=== PATIENT | male | born 1960 | race Caucasian/White ===

== ENCOUNTER 2020-01-30 20:40 | Emergency (ER) | payer BC, MEDICARE ==
--- NOTE | 2020-01-30 20:44 | EDM.PDOC ---
ED HPI GENERAL MEDICAL PROBLEM - General Chief Complaint: General Stated Complaint: LEG INFECTION, HEART RACING Time Seen by Provider: 01/30/20 20:42 Source of Information: Reports: Patient History Limitations: Reports: No Limitations - History of Present Illness INITIAL COMMENTS - FREE TEXT/NARRATIVE: 59-year-old male with history of stage IV colon cancer and rectal cancer, Afib, GI bleed, peripheral neuropathy, pancreatitis, bowel obstruction presents with vague constitutional symptoms today. He admits to feeling weak, hot and cold, sweats. He felt palpitations today and was concerned, currently palpitations have resolved. He also notes sharp, pressure constant midsternal chest discomfort today. He currently does not have any chest pain. He also complains of abdominal pain and chronic back pain. He takes OxyContin 10 mg 3 times daily and oxycodone 5 mg as needed for breakthrough pain. He has gone throught chemo/radiation therapy previously and is currently in remission. His prior surgery was performed by Dr. Younger at [facility] about [address] Kip Newberry is his PCP. ROS: A 10-point review of systems, other than pertinent positives and negatives as stated per HPI, is otherwise negative PHYSICAL EXAM General: AOx4, GCS = 15, No distress, anxious HEENT: dry mucous membrane Neck: supple, no meningismus, no Kernig or Brudzinski Cardiac: S1S2 RRR irregular rhythm Respiratory: CTAB, no crackles or rales, no wheezing Abdomen: Soft, LLQ TTP, no rebound or guarding, nondistended, no pulsatile mass. Back: nontender Musculoskeletal: NVI distally, no deformity Neuro: No focal deficits chronic Pain Score (Numeric/FACES): 6 - Related Data Allergies Allergy/AdvReac Type Severity Reaction Status Date / Time No Known Allergies Allergy Verified 09/16/17 15:35 Home Meds: Home Meds Aspirin 81 mg PO DAILY 07/27/16 [History] Metoprolol Succinate 100 mg PO DAILY 07/27/16 [History] oxyCODONE HCl [Oxycodone HCl] 5 mg PO Q4HR PRN 05/02/17 [History] Albuterol Sulfate [Albuterol Sulfate Hfa] 8.5 gm IH 01/30/20 [History] Fluticasone Propionate [Flovent HFA 110 MCG] 1 puff INH BID 01/30/20 [History] Furosemide 40 mg PO ASDIRECTED 01/30/20 [History] Gabapentin [Neurontin] 300 mg PO TID 01/30/20 [History] NIFEdipine [Nifedipine ER] 30 mg PO DAILY 01/30/20 [History] oxyCODONE ER [OxyCONTIN] 10 mg PO Q8HR 01/30/20 [History] Past Medical History - Past Health History Medical/Surgical History: Denies Medical/Surgical History HEENT History: Reports: Allergic Rhinitis Other HEENT History: wears glasses, has top denture Cardiovascular History: Reports: Afib, Arrhythmia, Heart Murmur, Other (See Below) Other Cardiovascular History: peripheral neuropathy, states has blood clots to both feet,Raynaud syndrome Respiratory History: Reports: None Gastrointestinal History: Reports: Other (See Below) Other Gastrointestinal History: rectal adenocarcinoma, occasional abd pain Genitourinary History: Reports: None Musculoskeletal History: Reports: Fracture, Gout Other Musculoskeletal History: fx thumb, ribs, left wrist Neurological History: Reports: Neuropathy, Peripheral Psychiatric History: Reports: Anxiety Endocrine/Metabolic History: Reports: None Hematologic History: Reports: Other (See Below) Other Hematologic History: H&P states bleeding disorder, pt states he has blood clots to both feet Oncologic (Cancer) History: Reports: Other (See Below) Other Oncologic History: rectal adenocarcinoma Dermatologic History: Reports: Other (See Below) Other Dermatologic History: dry skin - Infectious Disease History Infectious Disease History: Reports: Chicken Pox - Past Surgical History Head Surgeries/Procedures: Reports: None HEENT Surgical History: Reports: None Cardiovascular Surgical History: Reports: None Respiratory Surgical History: Reports: None GI Surgical History: Reports: Colonoscopy, Colostomy, Other (See Below) Musculoskeletal Surgical History: Reports: None Dermatological Surgical History: Reports: None Social & Family History - Family History Family Medical History: Noncontributory Oncologic: Reports: Lung - Caffeine Use Caffeine Use: Reports: None Other Caffeine Use: pt didnt answer question, unable to assess - Living Situation & Occupation Living situation: Reports: ED ROS GENERAL - Review of Systems Review Of Systems: Comprehensive ROS is negative, except as noted in HPI. ED EXAM, GENERAL - Physical Exam Exam: See Below (see dictation) EKG INTERPRETATION EKG Interpretation Comments: 102 bpm, Afib, normal QRS interval, no STEMI. EKG and rhythm strip interpreted by me at 2042 Course - Vital Signs Last Recorded V/S: Last Vital Signs Temp 97.8 F 01/31/20 00:42 Pulse 99 01/31/20 00:42 Resp 18 01/31/20 00:42 BP 133/84 01/31/20 00:42 Pulse Ox 99 01/31/20 00:42 - Orders/Labs/Meds Orders: Active Orders 24 hr Category Date Time Status EKG Documentation Completion [RC] STAT Care 01/30/20 20:58 Active Pulse Oximetry [RC] ASDIRECTED Care 01/30/20 20:56 Active CORONAVIRUS COVID-19 PCR PHL Stat Lab 01/31/20 00:43 Ordered PROCALCITONIN [REF] Stat Lab 01/30/20 21:10 Received Piperacillin/Tazobactam [Piperacil-Tazobact] 4.5 gm Med 01/31/20 00:45 Ordered Sodium Chloride 0.9% [Normal Saline] 100 ml IV ONETIME Sodium Chloride 0.9% [Saline Flush] Med 01/30/20 20:56 Active 10 ml FLUSH ASDIRECTED PRN Sodium Chloride 0.9% [Saline Flush] Med 01/30/20 20:56 Active 2.5 ml FLUSH ASDIRECTED PRN Saline Lock Insert [OM.PC] Stat Oth 01/30/20 20:56 Ordered Medication Orders Sodium Chloride (Saline Flush) 10 ml FLUSH ASDIRECTED PRN PRN Reason: Keep Vein Open Sodium Chloride (Saline Flush) 2.5 ml FLUSH ASDIRECTED PRN PRN Reason: Keep Vein Open Labs: Laboratory Tests 01/30/20 01/30/20 01/30/20 Range/Units 21:10 21:10 21:10 WBC 8.87 (4.0-11.0) K/uL RBC 4.36 L (4.50-5.90) M/uL Hgb 14.0 (13.0-17.0) g/dL Hct 41.0 (38.0-50.0) % MCV 94.0 (80.0-98.0) fL MCH 32.1 H (27.0-32.0) pg MCHC 34.1 (31.0-37.0) g/dL RDW Std Deviation 47.5 (28.0-62.0) fl RDW Coeff of Uvaldo 14 (11.0-15.0) % Plt Count 209 (150-400) K/uL MPV 10.40 (7.40-12.00) fL Neut % (Auto) 74.4 (48.0-80.0) % Lymph % (Auto) 15.6 L (16.0-40.0) % [place] % (Auto) 8.7 (0.0-15.0) % Eos % (Auto) 1.1 (0.0-7.0) % Baso % (Auto) 0.2 (0.0-1.5) % Neut # (Auto) 6.6 H (1.4-5.7) K/uL Lymph # (Auto) 1.4 (0.6-2.4) K/uL [place] # (Auto) 0.8 (0.0-0.8) K/uL Eos # (Auto) 0.1 (0.0-0.7) K/uL Baso # (Auto) 0.0 (0.0-0.1) K/uL Nucleated RBC % 0.0 /100WBC Nucleated RBCs # 0 K/uL INR APTT (18.6-31.3) SEC Lactate 1.1 (0.20-2.00) mmol/L Sodium 137 (136-148) mmol/L Potassium 3.2 L (3.5-5.1) mmol/L Chloride 99 (98-107) mmol/L Carbon Dioxide 22.3 (21.0-32.0) mmol/L BUN 13 (7.0-18.0) mg/dL Creatinine 0.9 (0.8-1.3) mg/dL Est Cr Clr Drug Dosing 99.40 mL/min Estimated GFR (MDRD) > 60.0 ml/min Glucose 102 (74-106) mg/dL Calcium 9.2 (8.5-10.1) mg/dL Phosphorus 2.8 (2.6-4.7) mg/dL Magnesium 1.8 (1.8-2.4) mg/dL Total Bilirubin 1.2 H (0.2-1.0) mg/dL AST 27 (15-37) IU/L ALT 27 (14-63) IU/L Alkaline Phosphatase 104 (46-116) U/L Creatine Kinase 158 (26-308) U/L Troponin I < 0.050 (0.000-0.056) ng/mL Total Protein 7.6 (6.4-8.2) g/dL Albumin 4.2 (3.4-5.0) g/dL Globulin 3.4 (2.6-4.0) g/dL Albumin/Globulin Ratio 1.2 (0.9-1.6) Lipase 105 (73-393) U/L Urine Color Urine Appearance Urine pH (5.0-8.0) Ur Specific [place] (1.001-1.035) Urine Protein (NEGATIVE) mg/dL Urine Glucose (UA) (NEGATIVE) mg/dL Urine Ketones (NEGATIVE) mg/dL Urine Occult Blood (NEGATIVE) Urine Nitrite (NEGATIVE) Urine Bilirubin (NEGATIVE) Urine Urobilinogen (<2.0) EU/dL Ur Leukocyte Esterase (NEGATIVE) Urine Opiates Screen (NEGATIVE) Ur Oxycodone Screen (NEGATIVE) Urine Methadone Screen (NEGATIVE) Ur Barbiturates Screen (NEGATIVE) Ur Phencyclidine Scrn (NEGATIVE) Ur Amphetamine Screen (NEGATIVE) U Methamphetamines Scrn (NEGATIVE) U Benzodiazepines Scrn (NEGATIVE) U Cocaine Metab Screen (NEGATIVE) U Marijuana (THC) Screen (NEGATIVE) Ethyl Alcohol < 3.0 mg/dL 01/30/20 01/30/20 01/30/20 Range/Units 21:17 21:50 21:52 WBC (4.0-11.0) K/uL RBC (4.50-5.90) M/uL Hgb (13.0-17.0) g/dL Hct (38.0-50.0) % MCV (80.0-98.0) fL MCH (27.0-32.0) pg MCHC (31.0-37.0) g/dL RDW Std Deviation (28.0-62.0) fl RDW Coeff of Uvaldo (11.0-15.0) % Plt Count (150-400) K/uL MPV (7.40-12.00) fL Neut % (Auto) (48.0-80.0) % Lymph % (Auto) (16.0-40.0) % [place] % (Auto) (0.0-15.0) % Eos % (Auto) (0.0-7.0) % Baso % (Auto) (0.0-1.5) % Neut # (Auto) (1.4-5.7) K/uL Lymph # (Auto) (0.6-2.4) K/uL [place] # (Auto) (0.0-0.8) K/uL Eos # (Auto) (0.0-0.7) K/uL Baso # (Auto) (0.0-0.1) K/uL Nucleated RBC % /100WBC Nucleated RBCs # K/uL INR 1.16 APTT 28.8 (18.6-31.3) SEC Lactate (0.20-2.00) mmol/L Sodium (136-148) mmol/L Potassium (3.5-5.1) mmol/L Chloride (98-107) mmol/L Carbon Dioxide (21.0-32.0) mmol/L BUN (7.0-18.0) mg/dL Creatinine (0.8-1.3) mg/dL Est Cr Clr Drug Dosing mL/min Estimated GFR (MDRD) ml/min Glucose (74-106) mg/dL Calcium (8.5-10.1) mg/dL Phosphorus (2.6-4.7) mg/dL Magnesium (1.8-2.4) mg/dL Total Bilirubin (0.2-1.0) mg/dL AST (15-37) IU/L ALT (14-63) IU/L Alkaline Phosphatase (46-116) U/L Creatine Kinase (26-308) U/L Troponin I (0.000-0.056) ng/mL Total Protein (6.4-8.2) g/dL Albumin (3.4-5.0) g/dL Globulin (2.6-4.0) g/dL Albumin/Globulin Ratio (0.9-1.6) Lipase (73-393) U/L Urine Color YELLOW Urine Appearance CLEAR Urine pH 6.0 (5.0-8.0) Ur Specific [place] 1.015 (1.001-1.035) Urine Protein NEGATIVE (NEGATIVE) mg/dL Urine Glucose (UA) NEGATIVE (NEGATIVE) mg/dL Urine Ketones 15 H (NEGATIVE) mg/dL Urine Occult Blood NEGATIVE (NEGATIVE) Urine Nitrite NEGATIVE (NEGATIVE) Urine Bilirubin NEGATIVE (NEGATIVE) Urine Urobilinogen 0.2 (<2.0) EU/dL Ur Leukocyte Esterase NEGATIVE (NEGATIVE) Urine Opiates Screen NEGATIVE (NEGATIVE) Ur Oxycodone Screen POSITIVE (NEGATIVE) Urine Methadone Screen NEGATIVE (NEGATIVE) Ur Barbiturates Screen NEGATIVE (NEGATIVE) Ur Phencyclidine Scrn NEGATIVE (NEGATIVE) Ur Amphetamine Screen NEGATIVE (NEGATIVE) U Methamphetamines Scrn NEGATIVE (NEGATIVE) U Benzodiazepines Scrn NEGATIVE (NEGATIVE) U Cocaine Metab Screen NEGATIVE (NEGATIVE) U Marijuana (THC) Screen POSITIVE (NEGATIVE) Ethyl Alcohol mg/dL Meds: Medications Generic Name Dose Route Start Last Admin Trade Name Freq PRN Reason Stop Dose Admin Sodium Chloride 10 ml 01/30/20 20:56 Saline Flush FLUSH ASDIRECTED PRN Keep Vein Open Sodium Chloride 2.5 ml 01/30/20 20:56 Saline Flush FLUSH ASDIRECTED PRN Keep Vein Open Discontinued Medications Generic Name Dose Route Start Last Admin Trade Name Freq PRN Reason Stop Dose Admin Lactated Ringer's 1,000 mls @ 999 mls/hr 01/30/20 20:56 01/30/20 21:10 Ringers, Lactated IV 01/30/20 21:56 999 mls/hr .BOLUS ONE Administration Iopamidol 100 ml 01/30/20 23:14 01/30/20 23:15 Isovue-370 (76%) IVPUSH 01/30/20 23:15 100 ml ONETIME STA Administration - Re-Assessments/Exams Free Text/Narrative Re-Assessment/Exam: 01/31/20 00:[address] Bj Bucio, he recommends transferring patient for need of higher level of care unavailable at this facility. Dr. Bucio states he might need stoma care. His previous colorectal surgery was performed at [facility]. Any emergency conditions have been stabilized to the ability of the ED prior to the transfer. Case was discussed with transfer center and transfer arranged to outside facility/higher level of care. 01/31/20 00:32 [facility] paging Dr. Darby (surgery). 01/31/20 00:[address] Darby, will consult patient. Transfer center paging Dr. Sheridan (hospitalist). 01/31/20 00:42 d/w Dr. Sheridan, will accept patient transfer by ALS. Ordered IV zosyn. Departure - Departure Time of Disposition: 00:28 Disposition: DC/Tfer to [facility] 02 Condition: Good Clinical Impression: Hypokalemia, Atrial fibrillation, Rectal cancer, Leak of anastomosis between gastrointestinal structures, Free intraperitoneal air - Discharge Information *PRESCRIPTION DRUG MONITORING PROGRAM REVIEWED*: Not Applicable *COPY OF PRESCRIPTION DRUG MONITORING REPORT IN PATIENT MARLEN: Not Applicable Referrals: Kip Newberry MD [Primary Care Provider] - Forms: ED Department Discharge Critical Care Note - Critical Care Note Total Time (mins): 40 Comments: Critical Care: The high probability of sudden, clinically significant deterioration in the patient's condition required the highest level of my preparedness to intervene urgently. The services I provided to this patient were to treat and/or prevent clinically significant deterioration. Services included the following: chart data review, reviewing nursing notes and/or old charts, documentation time, construction safety consultant collaboration regarding findings and treatment options, medication orders and management, direct patient care, vital sign assessments and ordering, interpreting and reviewing diagnostic studies/lab tests. Aggregate critical care time includes only time during which I was engaged in work directly related to the patient's care, as described above, whether at the bedside or elsewhere in the Emergency Department. It did not include time spent performing other reported procedures or the services of residents, students, nurses or physician assistants. Frequent interventions and/or frequent repeat evaluations were required as well as counseling and coordination of care regarding prognosis, treatments, and discussions with patient, staff and consultants. Critical Care (excluding other procedures): 40 minutes Sepsis Event Note (ED) - Focused Exam Vital Signs: Vital Signs Temp Pulse Resp BP Pulse Ox 01/31/20 00:42 97.8 F 99 18 133/84 99 01/31/20 00:19 88 18 129/101 H 97 01/30/20 23:14 78 18 126/89 98 01/30/20 22:16 84 131/106 H 97 01/30/20 22:04 94 140/105 H 97 01/30/20 21:49 82 124/98 H 100 01/30/20 21:34 132/97 H 100 01/30/20 21:19 90 122/91 H 100 01/30/20 21:17 99 126/94 H 100 01/30/20 20:51 96.3 F L 91 18 133/105 H 100 - My Orders Last 24 Hours: My Active Orders 01/30/20 20:56 Pulse Oximetry [RC] ASDIRECTED Sodium Chloride 0.9% [Saline Flush] 10 ml FLUSH ASDIRECTED PRN Sodium Chloride 0.9% [Saline Flush] 2.5 ml FLUSH ASDIRECTED PRN Saline Lock Insert [OM.PC] Stat 01/30/20 20:58 EKG Documentation Completion [RC] STAT 01/30/20 21:10 PROCALCITONIN [REF] Stat 01/31/20 00:43 CORONAVIRUS COVID-19 PCR PHL Stat 01/31/20 00:45 Piperacillin/Tazobactam [Piperacil-Tazobact] 4.5 gm Sodium Chloride 0.9% [Normal Saline] 100 ml IV ONETIME - Assessment/Plan Last 24 Hours: My Active Orders 01/30/20 20:56 Pulse Oximetry [RC] ASDIRECTED Sodium Chloride 0.9% [Saline Flush] 10 ml FLUSH ASDIRECTED PRN Sodium Chloride 0.9% [Saline Flush] 2.5 ml FLUSH ASDIRECTED PRN Saline Lock Insert [OM.PC] Stat 01/30/20 20:58 EKG Documentation Completion [RC] STAT 01/30/20 21:10 PROCALCITONIN [REF] Stat 01/31/20 00:43 CORONAVIRUS COVID-19 PCR PHL Stat 01/31/20 00:45 Piperacillin/Tazobactam [Piperacil-Tazobact] 4.5 gm Sodium Chloride 0.9% [Normal Saline] 100 ml IV ONETIME
[2020-01-30] MEDS ORDERED: Lactated Ringers 1,000 ML IV ONE (20:56)
[2020-01-30] MEDS ORDERED: Sodium Chloride 0.9% 10 ML Syringe FLUSH PRN (20:56)
[2020-01-30] MEDS ORDERED: Sodium Chloride 0.9% 2.5 ML Syringe FLUSH PRN (20:56)
[2020-01-30 21:49] LABS: BLOOD UREA NITROGEN,BUN 13 mg/dL (7.0-18.0); CARBON DIOXIDE,CO2 22.3 mmol/L (21.0-32.0); CHLORIDE,CL 99 mmol/L (98-107); GLUCOSE RANDOM 102 mg/dL (74-106); LIPASE 105 U/L (73-393); POTASSIUM,K 3.2 mmol/L (3.5-5.1); SODIUM,NA 137 mmol/L (136-148)
--- NOTE | 2020-01-30 21:57 | CR ---
Chest: Portable view of the chest was obtained. Comparison: Previous chest x-ray of 11/21/19. Heart size is within normal limits for portable technique. Tortuous thoracic aorta is seen. Evidence of previous vertebroplasty. Prior spine surgery is noted. Old healed right clavicle fracture is seen. Lungs are clear with no acute parenchymal change. Left-sided infusion catheter is seen. Impression: 1. Chronic bone findings as noted above. Infusion catheter. 2. Nothing acute is seen. Diagnostic code #2 Study was dictated in MDT
[2020-01-30] MEDS ORDERED: Iopamidol 755 Mg/ML 100 ML Bottle IVPUSH STA (23:14)
--- NOTE | 2020-01-31 00:08 | CT ---
INDICATION: Left lower quadrant pain, history of stage IV rectal cancer TECHNIQUE: CT abdomen and pelvis acquired with 100 cc Isovue 370 IV contrast. COMPARISON: September 07, 2019 FINDINGS: Lower chest: Cardiomegaly. Coronary artery calcifications. Liver: 1.6 cm hypodense lesion in the right hepatic lobe image 63 series 201 is new compared to the prior exam. There is somewhat in homogeneous enhancement of the liver. Spleen: Unremarkable. Pancreas: Unremarkable. Gallbladder and bile ducts: Unremarkable. Adrenal glands: Unremarkable. Kidneys: There is some scarring on both kidneys. GI tract: Anastomotic suture within the small bowel in the right abdomen and also apparently in the distal sigmoid colon. There is abnormal soft tissue density and air surrounding the distal sigmoid colon and within the presacral space. No rim enhancing fluid collection identified. Vascular structures: Unremarkable. Lymph nodes: Unremarkable. Miscellaneous: Small fat containing umbilical hernia. No free air or significant free fluid. Pelvic Organs: Enlarged prostate gland. Bones: Status post ORIF T11-L3. Chronic L1 fracture. IMPRESSION: Findings concerning for breakdown of anastomosis versus perforation of wall of the distal sigmoid colon with abnormal soft tissue and air surrounding this portion of the colon and within the presacral space. No rim enhancing fluid collection identified. Cardiomegaly with coronary artery disease. In homogeneous enhancement of the liver may be artifactual. There is a 1.6 cm hypodense lesion in the right hepatic lobe that is new compared to September 07, 2019. Consider MR liver for further characterization. Enlarged prostate gland. Findings discussed with Dr. Amato at 12:05 a.m. on January 31, 2020. Please note that all CT scans at this facility use dose modulation, iterative reconstruction, and/or weight-based dosing when appropriate to reduce radiation dose to as low as reasonably achievable. Dictated by Rina Ching MD @ Jan 31 2020 12:01AM (Electronically Signed)
[2020-01-31] MEDS ORDERED: Piperacillin/Tazobactam 4.5 GM in Sodium Chloride 0.9% 100 ML IV ONE (00:45)
[2020-01-31] MEDS ORDERED: LORazepam 2 MG/ML SDV IVPUSH ONE (01:56)
[2020-01-31 02:17] VITALS: BP 125/93; PULSE 98
== END 2020-01-31 02:15 ==
LOC: MW.ED 20:40
DX: I48.91 Unspecified atrial fibrillation (principal); E87.6 Hypokalemia; C20 Malignant neoplasm of rectum; K91.89 Other postprocedural complications and disorders of digestive system; G62.9 Polyneuropathy, unspecified; Z79.82 Long term (current) use of aspirin; Z79.899 Other long term (current) drug therapy
CPT/HCPCS: 36415; 71045; 74177; 80053; 80305; 80307; 81003; 82550; 83605; 83690; 83735; 84100; 84145; 84484; 85025; 85610; 85730; 87635; 93005; 96361; 96365; 96375; 99285; J2060; J2543; J7050; J7120; Q9967; U0002

== ENCOUNTER 2020-06-27 15:33 | Emergency (ER) | payer MEDICARE ==
--- NOTE | 2020-06-27 15:44 | EDM.PDOC ---
ED HPI GENERAL MEDICAL PROBLEM - General Chief Complaint: Skin Complaint Stated Complaint: PERFORATED INTESTINE SURGERY Time Seen by Provider: 06/27/20 15:37 Source of Information: Reports: Patient History Limitations: Reports: No Limitations - History of Present Illness INITIAL COMMENTS - FREE TEXT/NARRATIVE: 60-year-old male history of rectal cancer presents for CARMEN drain malfunction. Patient notes that the drain was placed approximately 6 weeks ago at [facility], he is unsure of the physician's name managing his care. He notes that he had an intestinal perforation and that it was managed nonsurgically through interventional radiology drain placement. He notes minimal output from the drain for the past couple of weeks. He was stripping the drain today when he accidentally pulled it out. He denies any pain, fevers, redness. He is supposed to follow-up in [facility] in 4 days but notes that he was planning on missing this appointment but keeping his next follow-up appointment in 2 weeks. Generalized Pain Score (Numeric/FACES): 7 - Related Data Allergies Allergy/AdvReac Type Severity Reaction Status Date / Time No Known Allergies Allergy Verified 06/27/20 15:44 Home Meds: Home Meds Aspirin 81 mg PO DAILY 07/27/16 [History] Metoprolol Succinate 100 mg PO DAILY 07/27/16 [History] oxyCODONE HCl [Oxycodone HCl] 5 mg PO Q4HR PRN 05/02/17 [History] Albuterol Sulfate [Albuterol Sulfate Hfa] 8.5 gm IH 01/30/20 [History] Fluticasone Propionate [Flovent HFA 110 MCG] 1 puff INH BID 01/30/20 [History] Furosemide 40 mg PO ASDIRECTED 01/30/20 [History] Gabapentin [Neurontin] 300 mg PO TID 01/30/20 [History] NIFEdipine [Nifedipine ER] 30 mg PO DAILY 01/30/20 [History] oxyCODONE ER [OxyCONTIN] 10 mg PO Q8HR 01/30/20 [History] Past Medical History - Past Health History Medical/Surgical History: Denies Medical/Surgical History HEENT History: Reports: Allergic Rhinitis Other HEENT History: wears glasses, has top denture Cardiovascular History: Reports: Afib, Arrhythmia, Heart Murmur, Other (See Below) Other Cardiovascular History: peripheral neuropathy, states has blood clots to both feet,Raynaud syndrome Respiratory History: Reports: None Other Respiratory History: CPAP for sleep, hx lung cancer, pt reports lobectomy Gastrointestinal History: Reports: Other (See Below) Other Gastrointestinal History: rectal adenocarcinoma, occasional abd pain Genitourinary History: Reports: None Musculoskeletal History: Reports: Fracture, Gout Other Musculoskeletal History: fx thumb, ribs, left wrist Neurological History: Reports: Neuropathy, Peripheral Psychiatric History: Reports: Anxiety Endocrine/Metabolic History: Reports: None Hematologic History: Reports: Other (See Below) Other Hematologic History: H&P states bleeding disorder, pt states he has blood clots to both feet Oncologic (Cancer) History: Reports: Other (See Below) Other Oncologic History: rectal adenocarcinoma Dermatologic History: Reports: Other (See Below) Other Dermatologic History: dry skin - Infectious Disease History Infectious Disease History: Reports: Chicken Pox - Past Surgical History Other GI Surgeries/Procedures: pt reports multiple surgeries Social & Family History - Family History Family Medical History: No Pertinent Family History Oncologic: Reports: Lung - Caffeine Use Caffeine Use: Reports: None Other Caffeine Use: pt didnt answer question, unable to assess - Living Situation & Occupation Living situation: Reports: ED ROS GENERAL - Review of Systems Review Of Systems: Comprehensive ROS is negative, except as noted in HPI. ED EXAM, SKIN/RASH Exam: See Below Exam Limited By: No Limitations General Appearance: Alert, WD/WN, No Apparent Distress Throat/Mouth: Normal Inspection, Normal Voice, No Airway Compromise Head: Atraumatic, Normocephalic Neck: Normal Inspection Respiratory/Chest: No Respiratory Distress, No Accessory Muscle Use Cardiovascular: Normal Peripheral Pulses GI/Abdominal: Soft, Non-Tender Extremities: Normal Inspection Neurological: Alert, Normal Gait Psychiatric: Normal Affect, Normal Mood Skin: Warm, Dry, Intact, Other (area right gluteus with opening from CARMEN drain, no associated erythema or drainage, no fluctuance) Course - Vital Signs Last Recorded V/S: Last Vital Signs Temp 96.3 F L 06/27/20 16:37 Pulse 99 06/27/20 16:37 Resp 16 06/27/20 16:37 BP 123/79 06/27/20 16:37 Pulse Ox 99 06/27/20 16:37 - Re-Assessments/Exams Free Text/Narrative Re-Assessment/Exam: 12/10/20 15:59 Will contact [facility] and try to reach out to patient's managing physician. 06/27/20 17:[address] Dm Michel who manages patient's CARMEN drain. He states he was debating removing it anyway and maybe now is a good time. Will d/c patient with return precautions and to f/u with Dr. Bryant Departure - Departure Time of Disposition: 17:03 Disposition: Home, Self-Care 01 Condition: Good Clinical Impression: Rectal cancer CARMEN drain, broken Qualifiers: Encounter type: initial encounter Qualified Code(s): T85.698A - Other mechanical complication of other specified internal prosthetic devices, implants and grafts, initial encounter - Discharge Information Instructions: Colorectal Cancer Referrals: Kip Newberry MD [Primary Care Provider] - Forms: ED Department Discharge Additional Instructions: I spoke with your physician at [facility]. He does not recommend having the drain replaced at this time. He would like to follow-up with you. If you develop fever, pain in the area, or any new or concerning symptoms you are encouraged to come back to the emergency department for further work-up. He does not recommend getting a CT scan at this time. Please keep your follow-up appointment. The following information is given to patients seen in the emergency department who are being discharged to home. This information is to outline your options for follow-up care. We provide all patients seen in our emergency department with a follow-up referral. The need for follow-up, as well as the timing and circumstances, are variable depending upon the specifics of your emergency department visit. If you don't have a primary care physician on staff, we will provide you with a referral. We always advise you to contact your personal physician following an emergency department visit to inform them of the circumstance of the visit and for follow-up with them and/or the need for any referrals to a consulting specialist. The emergency department will also refer you to a specialist when appropriate. This referral assures that you have the opportunity for follow-up care with a specialist. All of these measure are taken in an effort to provide you with optimal care, which includes your follow-up. Under all circumstances we always encourage you to contact your private physician who remains a resource for coordinating your care. When calling for follow-up care, please make the office aware that this follow-up is from your recent emergency room visit. If for any reason you are refused follow-up, please contact the [facility] Emergency Department at and asked to speak to the emergency department charge nurse. Please follow up with your primary care physician. If you do not have a primary care physician, see below: [facility] [address] [place] [id number] [facility] [address] [place] [address] Sepsis Event Note (ED) - Focused Exam Vital Signs: Vital Signs Temp Pulse Resp BP Pulse Ox 06/27/20 16:37 96.3 F L 99 16 123/79 99 06/27/20 15:44 96.8 F L 110 H 18 108/81 97
[2020-06-27 17:29] VITALS: BP 115/82; PULSE 105
== END 2020-06-27 17:25 | disposition home or self-care (01) ==
LOC: MW.ED 15:33
DX: T85.698A Other mechanical complication of other specified internal prosthetic devices, implants and grafts, initial encounter (principal); C20 Malignant neoplasm of rectum; I48.91 Unspecified atrial fibrillation; M10.9 Gout, unspecified; G62.9 Polyneuropathy, unspecified; Z79.82 Long term (current) use of aspirin; Z79.899 Other long term (current) drug therapy
CPT/HCPCS: 99283

== ENCOUNTER 2021-01-06 07:08 | Day surgery (SDC) | payer MEDICARE, BC ==
[~2021-01-06 07:08] MED LIST: Albuterol 0.083% 2.5 MG/3 ML Neb Soln NEB PRN; Glycopyrrolate 0.2 MG/ML SDV ONE; Ketorolac 30 MG/ML SDV ONE; Lactated Ringers 1,000 ML IV SCH; Lidocaine 2% 5 ML SDV ONE; Metoclopramide 10 MG/2 ML SDV IVPUSH PRN; Midazolam 1 MG/ML 2 ML SDV ONE; Morphine 10 MG/ML Syringe IVPUSH PRN; Naloxone 0.4 MG/ML Syringe IVPUSH PRN; Ondansetron 4 MG/2 ML SDV IVPUSH PRN; Propofol 200 MG/20 ML SDV ONE; ceFAZolin 2 GM in Premix Bag 1 BAG IV SCH; fentaNYL 100 MCG/2 ML SDV IVPUSH PRN
[2021-01-06] MEDS ORDERED: Bupivacaine 0.5% 30 ML SDV ONE (07:24)
[2021-01-06] MEDS ORDERED: ceFAZolin 1 GM Vial ONE ×2 (07:24→08:59)
--- NOTE | 2021-01-06 08:09 | PCM.PREANE ---
Preanesthetic Assessment - Anesthesia/Transfusion/Family Hx Anesthesia History: Prior Anesthesia Without Reaction Family History of Anesthesia Reaction: No Transfusion History: Prior Transfusion Without Reaction - Review of Systems General: Weakness, Fatigue, Appetite Pulmonary: Shortness of Breath Cardiovascular: Dyspnea on Exertion Gastrointestinal: Decreased Appetite Neurological: No Symptoms Other: Reports: Easy Bleeding, Liver Problems, Sinus Problem, Anxiety - Physical Assessment NPO Status Date: 01/06/21 NPO Status Time: 00:00 Vital Signs: Last Vital Signs Temp 96.8 F L 01/06/21 07:29 Pulse 74 01/06/21 07:29 Resp 16 01/06/21 07:29 BP 93/69 01/06/21 07:29 Pulse Ox 98 01/06/21 07:29 Height: 6 ft Weight: 180 lb Mental Status: Alert & Oriented x3 Airway Class: Mallampati = 2 Dentition: Reports: Dentures Thyro-Mental Finger Breadths: 4 Mouth Opening Finger Breadths: 4 ROM/Head Extension: Full Lungs: Clear to Auscultation, Normal Respiratory Effort Cardiovascular: Regular Rate, Regular Rhythm - Allergies Allergies/Adverse Reactions: Allergies Allergy/AdvReac Type Severity Reaction Status Date / Time No Known Allergies Allergy Verified 01/06/21 07:53 - Blood Blood Available: No - Anesthesia Plan Beta Amor: Metoprolol Med Last Dose Date: 01/06/21 Med Last Dose Time: 05:00 - Acknowledgements Anesthesia Type Planned: General Anesthesia Pt an Appropriate Candidate for the Planned Anesthesia: Yes Alternatives and Risks of Anesthesia Discussed w Pt/Guardian: Yes Pt/Guardian Understands and Agrees with Anesthesia Plan: Yes PreAnesthesia Questionnaire - Past Health History Medical/Surgical History: Denies Medical/Surgical History HEENT History: Reports: Allergic Rhinitis Other HEENT History: wears glasses, has top denture Cardiovascular History: Reports: Afib, Arrhythmia, Other (See Below) Other Cardiovascular History: peripheral neuropathy, states has blood clots to both feet, raynauds syndrome Respiratory History: Reports: Other (See Below) Other Respiratory History: hx lung cancer stage I, uses neb tx's and inhalers as needed Gastrointestinal History: Reports: Other (See Below) Other Gastrointestinal History: rectal adenocarcinoma, occasional heartburn Genitourinary History: Reports: Other (See Below) Other Genitourinary History: frequent urination Musculoskeletal History: Reports: Back Pain, Chronic, Fracture, Gout Other Musculoskeletal History: fx thumb, ribs, left wrist, collarbone, Neurological History: Reports: Neuropathy, Peripheral Psychiatric History: Reports: Anxiety Endocrine/Metabolic History: Reports: None Hematologic History: Reports: Other (See Below) Other Hematologic History: H&P states bleeding disorder, pt states he has blood clots to both feet following a fall from tree stand Immunologic History: Reports: None Oncologic (Cancer) History: Reports: Colon, Lung Dermatologic History: Reports: None - Infectious Disease History Infectious Disease History: Reports: Chicken Pox - Past Surgical History Head Surgeries/Procedures: Reports: None HEENT Surgical History: Reports: None Cardiovascular Surgical History: Reports: None Respiratory Surgical History: Reports: Lung Resection GI Surgical History: Reports: Colon, Colonoscopy, Colostomy, Other (See Below) Other GI Surgeries/Procedures: pt reports multiple surgeries, low anterior resection with colostomy, colostomy reversal Male Surgical History: Reports: Other (See Below) Other Male Surgeries/Procedures: partial hepatetectomy at 6 months old (benign) Endocrine Surgical History: Reports: None Neurological Surgical History: Reports: Lumbar Spine Other Neurological Surgeries/Procedures: hx back surgery Musculoskeletal Surgical History: Reports: None Oncologic Surgical History: Reports: Lobectomy, Other (See Below) Other Oncologic Surgeries/Procedures: hx low anterior colon resection, lung lobectomy Dermatological Surgical History: Reports: None - SUBSTANCE USE Tobacco Use Status *Q: Light Tobacco User Tobacco Use Within Last Twelve Months: Cigars Recreational Drug Type: Reports: Marijuana/Hashish - HOME MEDS Home Medications: Home Meds Aspirin 82 mg PO DAILY 07/27/16 [History] Metoprolol Succinate 100 mg PO DAILY 07/27/16 [History] oxyCODONE HCl [Oxycodone HCl] 5 mg PO Q4HR PRN 05/02/17 [History] Fluticasone Propionate [Flovent HFA 110 MCG] 1 puff INH ASDIRECTED PRN 01/30/20 [History] Gabapentin [Neurontin] 600 mg PO TID 01/30/20 [History] NIFEdipine [Nifedipine ER] 30 mg PO DAILY 01/30/20 [History] Albuterol Sulfate 1 inhalation NEB ASDIRECTED PRN 01/01/21 [History] Albuterol Sulfate [Proair Hfa] 1 - 2 puff INH ASDIRECTED PRN 01/01/21 [History] Ascorbic Acid [Vitamin C] 1 tab PO DAILY 01/01/21 [History] Cholecalciferol (Vitamin D3) [Vitamin D3] 1 tab PO DAILY 01/01/21 [History] Multivitamin 1 tab PO DAILY 01/01/21 [History] Naproxen Sodium [Aleve] 1 tab PO ASDIRECTED PRN 01/01/21 [History] - CURRENT (IN HOUSE) MEDS Current Meds: Current Medications Albuterol (Albuterol 0.083% 2.5 Mg/3 Ml Neb Soln) 2.5 mg NEB ONETIME PRN PRN Reason: Wheezing Droperidol (Droperidol 5 Mg/2 Ml Sdv) 0.625 mg IVPUSH ONETIME PRN PRN Reason: Nausea/Vomiting Fentanyl (Fentanyl 100 Mcg/2 Ml Sdv) 50 mcg IVPUSH Q5M PRN PRN Reason: Pain (mild 1-3) Hydromorphone HCl (Hydromorphone 2 Mg/Ml Syringe) 0.5 mg IVPUSH Q10M PRN PRN Reason: Pain (moderate 4-6) Cefazolin Sodium/Dextrose 2 gm (/ Premix) 50 mls @ 100 mls/hr IV ONETIME NELI Lactated Ringer's (Ringers, Lactated) 1,000 mls @ 125 mls/hr IV ASDIRECTED REPLACED BY [facility] Last Admin: 01/06/21 07:34 Dose: 125 mls/hr Documented by: Metoclopramide HCl (Metoclopramide 10 Mg/2 Ml Sdv) 10 mg IVPUSH ONETIME PRN PRN Reason: Nausea/Vomiting Morphine Sulfate (Morphine 10 Mg/Ml Syringe) 2 mg IVPUSH Q10M PRN PRN Reason: Pain (severe 7-10) Naloxone HCl (Naloxone 0.4 Mg/Ml Syringe) 0.1 mg IVPUSH ASDIRECTED PRN PRN Reason: Respiratory Depression Ondansetron HCl (Ondansetron 4 Mg/2 Ml Sdv) 4 mg IVPUSH ONETIME PRN PRN Reason: Nausea/Vomiting Discontinued Medications Bupivacaine HCl (Bupivacaine 0.5% 30 Ml Sdv) Confirm Administered Dose 30 ml .ROUTE .STK-MED ONE Stop: 01/06/21 07:25 Cefazolin Sodium (Cefazolin 1 Gm Vial) Confirm Administered Dose 1 gm .ROUTE .STK-MED ONE Stop: 01/06/21 07:25 Glycopyrrolate (Glycopyrrolate 0.2 Mg/Ml Sdv) Confirm Administered Dose 0.2 mg .ROUTE .STK-MED ONE Stop: 01/06/21 07:05 Ketorolac Tromethamine (Ketorolac 30 Mg/Ml Sdv) Confirm Administered Dose 30 mg .ROUTE .STK-MED ONE Stop: 01/06/21 07:05 Lidocaine (Lidocaine 2% 5 Ml Sdv) Confirm Administered Dose 5 ml .ROUTE .STK-MED ONE Stop: 01/06/21 07:05 Midazolam HCl (Midazolam 1 Mg/Ml 2 Ml Sdv) Confirm Administered Dose 2 mg .ROUTE .STK-MED ONE Stop: 01/06/21 07:04 Propofol (Propofol 200 Mg/20 Ml Sdv) Confirm Administered Dose 200 mg .ROUTE .STK-MED ONE Stop: 01/06/21 07:04
[2021-01-06] MEDS ORDERED: Sodium Chloride 0.9% 20 ML ONE (08:59)
[2021-01-06] MEDS ORDERED: Morphine 10 MG/ML Syringe IVPUSH PRN (10:55)
[2021-01-06] MEDS ORDERED: Ondansetron 4 MG/2 ML SDV IVPUSH PRN (10:55)
--- NOTE | 2021-01-06 10:59 | PCM.OPNOTE ---
- General Post-Op/Procedure Note Date of Surgery/Procedure: 01/06/21 Operative Procedure(s): Repair right inguinal hernia with medium Bard PerFix plug and patch. Pre Op Diagnosis: Reducible right inguinal hernia Post-Op Diagnosis: Same Anesthesia Technique: General LMA (ASA III) Primary Surgeon: Bj Bucio Nail Maker: Mercedes Newberry Fluid Replacement, Intraop: 1,000 EBL in mLs: 5 Condition: Good Free Text/Narrative:: DICTATION 624097 CPT CODE 79843
[2021-01-06] MEDS ORDERED: Lactated Ringers 1,000 ML IV SCH (11:00)
[2021-01-06] MEDS: HYDROmorphone 2 MG/ML Syringe IVPUSH PRN ×2 (11:09→11:26)
--- NOTE | 2021-01-06 11:49 | PCM.POSTAN ---
POST ANESTHESIA ASSESSMENT - MENTAL STATUS Mental Status: Alert, Oriented - VITAL SIGNS Vital Signs: Last Vital Signs Temp 97.0 F 01/06/21 11:20 Pulse 68 01/06/21 11:35 Resp 14 01/06/21 11:35 BP 96/64 01/06/21 11:35 Pulse Ox 96 01/06/21 11:35 - RESPIRATORY Respiratory Status: Respiratory Rate WNL, Airway Patent, O2 Saturation Stable - CARDIOVASCULAR CV Status: Pulse Rate WNL, Blood Pressure Stable - GASTROINTESTINAL GI Status: No Symptoms - POST OP HYDRATION Hydration Status: Adequate & Stable
--- NOTE | 2021-01-06 11:50 | PCM48HPAN ---
Post Anesthesia Note - EVALUATION WITHIN 48HRS OF ANESTHETIC Vital Signs in Normal Range: Yes Patient Participated in Evaluation: Yes Respiratory Function Stable: Yes Airway Patent: Yes Cardiovascular Function Stable: Yes Hydration Status Stable: Yes Pain Control Satisfactory: Yes Nausea and Vomiting Control Satisfactory: Yes Mental Status Recovered: Yes Vital Signs: Last Vital Signs Temp 97.0 F 01/06/21 11:20 Pulse 68 01/06/21 11:35 Resp 14 01/06/21 11:35 BP 96/64 01/06/21 11:35 Pulse Ox 96 01/06/21 11:35
[2021-01-06 12:25] VITALS: BP 97/68; PULSE 72
--- NOTE | 2021-01-06 15:52 | OR ---
SURGEON: Bj Bucio M.D. DATE OF PROCEDURE: 01/06/2021 OPERATION PERFORMED: Repair of right inguinal hernia with medium Bard PerFix plug and patch. PRIMARY SURGEON: Bj Bucio M.D. TOOL LAPPER HAND: KATI Torres student. ANESTHESIA: General LMA. ASA CLASSIFICATION: III. PREOPERATIVE DIAGNOSIS: Reducible right inguinal hernia. POSTOPERATIVE DIAGNOSIS: Reducible right inguinal hernia. ESTIMATED BLOOD LOSS: 5 mL. INTRAOPERATIVE FLUID REPLACEMENT: 1000 mL of crystalloid. DESCRIPTION OF PROCEDURE: The patient was taken to the operating room and placed on the operating table in the supine position. The surgical site had been marked with the patient's help prior to the patient entering the operating room. Time-out was called for appropriate identification of the patient and procedure. Following satisfactory attainment of general anesthesia with placement of an LMA, the abdomen was prepped with DuraPrep solution and sterile drapes were applied. Skin incision was marked out in the right inguinal crease, then infiltrated with 10 mL of 0.5% plain Marcaine solution. Skin incision was made and deepened through the subcutaneous tissue obtaining hemostasis with the use of electrocautery. The external oblique was opened in the direction of its fibers and retracted. The hernia sac and cord were mobilized, and the hernia sac from the cord. The cord was then encircled with a Sukhwinder drain. The patient did have a small lipoma of the cord that was removed. Once the hernia sac was completely mobilized, this was easily able to be reduced. A medium Bard PerFix plug and patch were brought to the operating table and soaked in 1% Ancef solution. The plug was placed into the internal ring and secured with 0 Ethibond sutures. The patch was then placed overlying this area and secured with multiple interrupted stitches beginning medially and inferiorly to Franklin's ligament, transitioning to the inguinal ligament, and superiorly to the transversalis fascia. The wings of the patch were brought around the cord and secured with 0 Ethibond suture. All sutures except the lateral suture were tied. The patient was given a Valsalva maneuver to 30 cm of water, and the repair was satisfactory. The lateral suture was then tied with care taken not to impinge the cord. The wound was then inspected for hemostasis, and small bleeding sites were electrocoagulated. The wound was irrigated with 1% Ancef solution. The cord was returned to its proper anatomic position, and the external oblique fascia was closed with 3-0 Vicryl. Shantell's fascia was reapproximated with 3-0 Vicryl and the skin edges were reapproximated with subcuticular 4-0 Monocryl reinforced with half-inch Steri-Strips. Sterile Tegaderm was placed as a dressing. Sponge, needle, and instrument counts were all correct. Following emergence from anesthesia and extubation, the patient was taken to recovery room in stable condition. DOROTEO RICHARDSON /[id number] JOCY
== END 2021-01-06 12:24 | disposition home or self-care (01) ==
LOC: MW.SDS 07:08
PROVIDERS: ATTEND Surgery
DX: K40.90 Unilateral inguinal hernia, without obstruction or gangrene, not specified as recurrent (principal); D17.6 Benign lipomatous neoplasm of spermatic cord; M10.9 Gout, unspecified; I48.91 Unspecified atrial fibrillation; D68.9 Coagulation defect, unspecified; F17.210 Nicotine dependence, cigarettes, uncomplicated; Z86.69 Personal history of other diseases of the nervous system and sense organs; Z98.890 Other specified postprocedural states; Z85.038 Personal history of other malignant neoplasm of large intestine; Z85.118 Personal history of other malignant neoplasm of bronchus and lung; Z79.82 Long term (current) use of aspirin; Z79.899 Other long term (current) drug therapy
CPT/HCPCS: 49505; C1781; J0690; J1170; J1885; J2250; J2704; J3490; J7120; 00830

== ENCOUNTER 2021-01-08 19:50 | Emergency (ER) | payer MEDICARE, BC ==
[2021-01-08] MEDS ORDERED: Sodium Chloride 0.9% 2.5 ML Syringe FLUSH PRN (20:27)
[2021-01-08] MEDS ORDERED: Sodium Chloride 0.9% 10 ML Syringe FLUSH PRN (20:27)
[2021-01-08] MEDS ORDERED: fentaNYL 50 MCG/ML SDV IVPUSH ONE (20:27)
[2021-01-08] MEDS ORDERED: Ondansetron 4 MG/2 ML SDV IVPUSH ONE (20:27)
--- NOTE | 2021-01-08 20:31 | EDM.PDOC ---
ED HPI GENERAL MEDICAL PROBLEM - General Chief Complaint: General Stated Complaint: HAD HERNIA SURGERY Time Seen by Provider: 01/08/21 19:55 - History of Present Illness INITIAL COMMENTS - FREE TEXT/NARRATIVE: History of present illness: [] The patient is here for abdominal pain, anorexia, nausea, and decreased bowel movements. Patient has chronic recurring bowel obstructions and abdominal pain and adhesions from multiple surgeries. He is a survival of lung cancer in a less than 5-year survivor of colon cancer with a negative colonoscopy on last check. He had a inguinal hernia that was symptomatic with pain and had a re paired 2 days ago here. The patient admittedly is not only not having bowel movements and not eating well but scared to be alone at home and worried that he is going to need another surgery. He adamantly refuses an NG tube. The patient called the surgeon of record and was told that the pain was probably not unexpected. The patient has passed some gas today. Review of systems: As per history of present illness and below otherwise all systems reviewed and negative. Past medical history: As per history of present illness and as reviewed below otherwise noncontributory. Surgical history: As per history of present illness and as reviewed below otherwise noncontributory. Social history: No reported history of drug or alcohol abuse. Family history: As per history of present illness and as reviewed below otherwise noncontributory. Physical exam: Constitutional - well developed, well-nourished and in no acute distress HEENT - normocephalic, no evidence of trauma - external nose and mouth normal - no mass in neck and no JVD - mucosae moist EYES - full EOM, PERRL, no icterus - no evidence of inflammation, injection, or drainage Respiratory - no respiratory distress, equal bilateral expansion, lungs clear to auscultation and no abnormal lung sounds Cardiovascular - Regular Rhythm with S1 and S2 appreciated and no murmur, gallop or rub. GI -incision in the right lower quadrant without any evidence of dehiscence or inflammation. There is some tenderness in the abdomen but it is much in the hypogastrium superior to this area as it is in the area of the incision itself. Abdomen soft without distension or organomegaly - normal bowel sounds - no guard or rebound -no recurrence of hernia with Valsalva normal external genitalia except for ecchymosis of the skin. Musculoskeletal no gross deformity of long bones or joints - no tenderness, swelling or edema Neurologic - Alert and oriented times four - CN II-XII grossly intact - motor sensory and coordination symmetrically normal Psychiatric - appropriate mood and affect with normal thought content Hematologic - No petechiae or purpura - mucosa appropriate color and sclera not pale - normal nail bed color and refill Integument - no rash or evidence of trauma - normal turgor Diagnostics: [] Therapeutics: [] Impression: [] Plan: [] Definitive disposition and diagnosis as appropriate pending reevaluation and review of above. Right Groin Pain Score (Numeric/FACES): 5 - Related Data Allergies Allergy/AdvReac Type Severity Reaction Status Date / Time No Known Allergies Allergy Verified 01/08/21 19:56 Home Meds: Home Meds Aspirin 82 mg PO DAILY 07/27/16 [History] Metoprolol Succinate 100 mg PO DAILY 07/27/16 [History] oxyCODONE HCl [Oxycodone HCl] 5 mg PO Q4HR PRN 05/02/17 [History] Fluticasone Propionate [Flovent HFA 110 MCG] 1 puff INH ASDIRECTED PRN 01/30/20 [History] Gabapentin [Neurontin] 600 mg PO TID 01/30/20 [History] NIFEdipine [Nifedipine ER] 30 mg PO DAILY 01/30/20 [History] Albuterol Sulfate 1 inhalation NEB ASDIRECTED PRN 01/01/21 [History] Albuterol Sulfate [Proair Hfa] 1 - 2 puff INH ASDIRECTED PRN 01/01/21 [History] Ascorbic Acid [Vitamin C] 1 tab PO DAILY 01/01/21 [History] Cholecalciferol (Vitamin D3) [Vitamin D3] 1 tab PO DAILY 01/01/21 [History] Multivitamin 1 tab PO DAILY 01/01/21 [History] Naproxen Sodium [Aleve] 1 tab PO ASDIRECTED PRN 01/01/21 [History] Past Medical History - Past Health History Medical/Surgical History: Denies Medical/Surgical History HEENT History: Reports: Allergic Rhinitis Other HEENT History: wears glasses, has top denture Cardiovascular History: Reports: Afib, Arrhythmia, Other (See Below) Other Cardiovascular History: peripheral neuropathy, states has blood clots to both feet, raynauds syndrome Respiratory History: Reports: Other (See Below) Other Respiratory History: hx lung cancer stage I, uses neb tx's and inhalers as needed Gastrointestinal History: Reports: Other (See Below) Other Gastrointestinal History: rectal adenocarcinoma, occasional heartburn Genitourinary History: Reports: Other (See Below) Other Genitourinary History: frequent urination Musculoskeletal History: Reports: Back Pain, Chronic, Fracture, Gout Other Musculoskeletal History: fx thumb, ribs, left wrist, collarbone, Neurological History: Reports: Neuropathy, Peripheral Psychiatric History: Reports: Anxiety Endocrine/Metabolic History: Reports: None Hematologic History: Reports: Other (See Below) Other Hematologic History: H&P states bleeding disorder, pt states he has blood clots to both feet following a fall from tree stand Immunologic History: Reports: None Oncologic (Cancer) History: Reports: Colon, Lung Dermatologic History: Reports: None - Infectious Disease History Infectious Disease History: Reports: Chicken Pox - Past Surgical History Head Surgeries/Procedures: Reports: None HEENT Surgical History: Reports: None Cardiovascular Surgical History: Reports: None Respiratory Surgical History: Reports: Lung Resection GI Surgical History: Reports: Colon, Colonoscopy, Colostomy, Other (See Below) Other GI Surgeries/Procedures: pt reports multiple surgeries, low anterior resection with colostomy, colostomy reversal Male Surgical History: Reports: Other (See Below) Other Male Surgeries/Procedures: partial hepatetectomy at 6 months old (benign) Endocrine Surgical History: Reports: None Neurological Surgical History: Reports: Lumbar Spine Other Neurological Surgeries/Procedures: hx back surgery Musculoskeletal Surgical History: Reports: None Oncologic Surgical History: Reports: Lobectomy, Other (See Below) Other Oncologic Surgeries/Procedures: hx low anterior colon resection, lung lobectomy Dermatological Surgical History: Reports: None Social & Family History - Family History Family Medical History: No Pertinent Family History Oncologic: Reports: Lung - Tobacco Use Tobacco Use Status *Q: Never Tobacco User - Caffeine Use Caffeine Use: Reports: Coffee Other Caffeine Use: pt didnt answer question, unable to assess - Recreational Drug Use Recreational Drug Type: Reports: Marijuana/Hashish - Living Situation & Occupation Living situation: Reports: ED ROS GENERAL - Review of Systems Review Of Systems: Comprehensive ROS is negative, except as noted in HPI. ED EXAM, GENERAL - Physical Exam Exam: See Below Free Text/Narrative:: My physical exam is in the HPI Course - Vital Signs Text/Narrative:: X-ray did not demonstrate a bowel obstruction. Discussed with Dr. Bucio and he agreed to see the patient in follow-up tomorrow Last Recorded V/S: Last Vital Signs Temp 36.1 C 01/08/21 19:56 Pulse 101 H 01/08/21 19:56 Resp 19 01/08/21 19:56 BP 111/78 01/08/21 19:56 Pulse Ox 96 01/08/21 19:56 - Orders/Labs/Meds Orders: Active Orders 24 hr Category Date Time Status Abdomen Series w Chest 1V [CR] Stat Exams 01/08/21 20:27 Taken UA W/MESERET RFLX IF INDICATED [URIN] Stat Lab 01/08/21 20:27 Ordered Sodium Chloride 0.9% [Saline Flush] Med 01/08/21 20:27 Active 10 ml FLUSH ASDIRECTED PRN Sodium Chloride 0.9% [Saline Flush] Med 01/08/21 20:27 Active 2.5 ml FLUSH ASDIRECTED PRN Saline Lock Insert [OM.PC] Stat Oth 01/08/21 20:27 Ordered Medication Orders Sodium Chloride (Sodium Chloride 0.9% 10 Ml Syringe) 10 ml FLUSH ASDIRECTED PRN PRN Reason: Keep Vein Open Sodium Chloride (Sodium Chloride 0.9% 2.5 Ml Syringe) 2.5 ml FLUSH ASDIRECTED PRN PRN Reason: Keep Vein Open Labs: Laboratory Tests 01/08/21 01/08/21 01/08/21 Range/Units 20:10 20:10 20:10 WBC 13.81 H (4.0-11.0) K/uL RBC 4.75 (4.50-5.90) M/uL Hgb 15.2 (13.0-17.0) g/dL Hct 44.9 (38.0-50.0) % MCV 94.5 (80.0-98.0) fL MCH 32.0 (27.0-32.0) pg MCHC 33.9 (31.0-37.0) g/dL RDW Std Deviation 46.7 (28.0-62.0) fl RDW Coeff of Uvaldo 13 (11.0-15.0) % Plt Count 226 (150-400) K/uL MPV 10.90 (7.40-12.00) fL Neut % (Auto) 80.3 H (48.0-80.0) % Lymph % (Auto) 7.7 L (16.0-40.0) % Castro % (Auto) 9.7 (0.0-15.0) % Eos % (Auto) 2.2 (0.0-7.0) % Baso % (Auto) 0.1 (0.0-1.5) % Neut # (Auto) 11.1 H (1.4-5.7) K/uL Lymph # (Auto) 1.1 (0.6-2.4) K/uL Castro # (Auto) 1.3 H (0.0-0.8) K/uL Eos # (Auto) 0.3 (0.0-0.7) K/uL Baso # (Auto) 0.0 (0.0-0.1) K/uL Nucleated RBC % 0.0 /100WBC Nucleated RBCs # 0 K/uL Sodium 138 (136-148) mmol/L Potassium 3.9 (3.5-5.1) mmol/L Chloride 100 (98-107) mmol/L Carbon Dioxide 26.8 (21.0-32.0) mmol/L BUN 15 (7.0-18.0) mg/dL Creatinine 1.1 (0.8-1.3) mg/dL Est Cr Clr Drug Dosing 80.34 mL/min Estimated GFR (MDRD) > 60.0 ml/min Glucose 101 (74-106) mg/dL Lactic Acid 0.7 (0.4-2.0) mmol/L Calcium 8.9 (8.5-10.1) mg/dL Total Bilirubin 1.5 H (0.2-1.0) mg/dL AST 18 (15-37) IU/L ALT 17 (14-63) IU/L Alkaline Phosphatase 105 (46-116) U/L Total Protein 7.9 (6.4-8.2) g/dL Albumin 3.7 (3.4-5.0) g/dL Globulin 4.2 H (2.6-4.0) g/dL Albumin/Globulin Ratio 0.9 (0.9-1.6) Lipase 103 (73-393) U/L Meds: Medications Generic Name Dose Route Start Last Admin Trade Name Freq PRN Reason Stop Dose Admin Sodium Chloride 10 ml 01/08/21 20:27 Sodium Chloride 0.9% 10 Ml Syringe FLUSH ASDIRECTED PRN Keep Vein Open Sodium Chloride 2.5 ml 01/08/21 20:27 Sodium Chloride 0.9% 2.5 Ml Syringe FLUSH ASDIRECTED PRN Keep Vein Open Discontinued Medications Generic Name Dose Route Start Last Admin Trade Name Freq PRN Reason Stop Dose Admin Fentanyl 50 mcg 01/08/21 20:27 01/08/21 20:37 Fentanyl 50 Mcg/Ml Sdv IVPUSH 01/08/21 20:28 50 mcg ONETIME ONE Administration Ondansetron HCl 4 mg 01/08/21 20:27 01/08/21 20:36 Ondansetron 4 Mg/2 Ml Sdv IVPUSH 01/08/21 20:28 4 mg ONETIME ONE Administration Departure - Departure Time of Disposition: 21:16 Disposition: Home, Self-Care 01 Condition: Good Clinical Impression: Abdominal pain - Discharge Information Instructions: Abdominal Pain, Adult, [id number] Referrals: Jayson Charles MD [Primary Care Provider] - Forms: ED Department Discharge Additional Instructions: Dr. bucio said call in the morning and he will see you around 1030 if you are still concerned. [facility] - Primary Care [address] [place] [address] [place] [address] The following information is given to patients seen in the emergency department who are being discharged to home. This information is to outline your options for follow-up care. We provide all patients seen in our emergency department with a follow-up referral. The need for follow-up, as well as the timing and circumstances, are variable depending upon the specifics of your emergency department visit. If you don't have a primary care physician on staff, we will provide you with a referral. We always advise you to contact your personal physician following an emergency department visit to inform them of the circumstance of the visit and for follow-up with them and/or the need for any referrals to a consulting specialist. The emergency department will also refer you to a specialist when appropriate. This referral assures that you have the opportunity for follow-up care with a specialist. All of these measure are taken in an effort to provide you with optimal care, which includes your follow-up. Under all circumstances we always encourage you to contact your private physician who remains a resource for coordinating your care. When calling for follow-up care, please make the office aware that this follow-up is from your recent emergency room visit. If for any reason you are refused follow-up, please contact the [facility] Emergency Department at and asked to speak to the emergency department charge nurse. Sepsis Event Note (ED) - Evaluation Sepsis Screening Result: No Definite Risk - Focused Exam Vital Signs: Vital Signs Temp Pulse Resp BP Pulse Ox 01/08/21 19:56 36.1 C 101 H 19 111/78 96 - My Orders Last 24 Hours: My Active Orders 01/08/21 20:27 Abdomen Series w Chest 1V [CR] Stat UA W/MESERET RFLX IF INDICATED [URIN] Stat Sodium Chloride 0.9% [Saline Flush] 10 ml FLUSH ASDIRECTED PRN Sodium Chloride 0.9% [Saline Flush] 2.5 ml FLUSH ASDIRECTED PRN Saline Lock Insert [OM.PC] Stat - Assessment/Plan Last 24 Hours: My Active Orders 01/08/21 20:27 Abdomen Series w Chest 1V [CR] Stat UA W/MESERET RFLX IF INDICATED [URIN] Stat Sodium Chloride 0.9% [Saline Flush] 10 ml FLUSH ASDIRECTED PRN Sodium Chloride 0.9% [Saline Flush] 2.5 ml FLUSH ASDIRECTED PRN Saline Lock Insert [OM.PC] Stat
[2021-01-08 20:43] LABS: BLOOD UREA NITROGEN,BUN 15 mg/dL (7.0-18.0); CARBON DIOXIDE,CO2 26.8 mmol/L (21.0-32.0); CHLORIDE,CL 100 mmol/L (98-107); GLUCOSE RANDOM 101 mg/dL (74-106); LIPASE 103 U/L (73-393); POTASSIUM,K 3.9 mmol/L (3.5-5.1); SODIUM,NA 138 mmol/L (136-148)
--- NOTE | 2021-01-08 21:44 | CR ---
INDICATION: Post operative hernia repair for 3 days ago with abdominal pain. No bowel movement TECHNIQUE: Chest and Abdominal radiograph 3 view COMPARISON: 01/30/2020 FINDINGS: CHEST: Mediastinum: The mediastinum is normal in appearance. The heart silhouette is normal in size and morphology. A left Port-A-Cath is present with tip in the SVC. Lung: Both lungs are unremarkable in appearance. No sign of pleural effusion seen. No pneumothorax is identified. ABDOMEN: Bowel: The bowel gas pattern is normal without evidence of bowel obstruction. Soft tissue: No evidence of pneumoperitoneum present. No suspicious calcifications noted. Bone: Methylmethacrylate is seen along the right aspect of the mid thoracic spine. Transpedicular fusion of the thoracolumbar junction is noted. IMPRESSION: 1. Unremarkable appearance of the chest and abdomen. Dictated by Vaibhav Byers MD @ 01/08/2021 9:42:40 PM Dictated by: Vaibhav Byers MD @ 01/08/2021 21:42:44 (Electronically Signed)
[2021-01-08 21:48] VITALS: BP 134/78; PULSE 78
== END 2021-01-08 21:48 | disposition home or self-care (01) ==
LOC: MW.ED 19:50
DX: R10.31 Right lower quadrant pain (principal); Z79.82 Long term (current) use of aspirin
CPT/HCPCS: 36415; 74022; 80053; 83605; 83690; 85025; 96374; 96375; 99284; J2405; J3010